=== PATIENT | female | born 1955 | race Caucasian/White ===

== ENCOUNTER 2017-06-14 11:29 | Outpatient (CLI) | payer OTHER ==
[2012-10-17 18:57] VITALS: BP 145/54
[2017-06-14 12:34] LABS: eGFR (African) > 60; eGFR (Non-African) > 60
== END 2017-06-14 11:30 ==
LOC: LAB 11:29
PROVIDERS: ATTEND Internal Medicine
DX: E11.65 Type 2 diabetes mellitus with hyperglycemia (principal); I10 Essential (primary) hypertension; E78.00 Pure hypercholesterolemia, unspecified; E03.9 Hypothyroidism, unspecified
CPT/HCPCS: 36415; 80053; 80061; 82043; 83036; 84439; 84443

== ENCOUNTER 2017-12-23 11:52 | Outpatient (CLI) | payer OTHER ==
[2012-10-17 18:57] VITALS: BP 145/54
[2017-12-23 16:31] LABS: TOTAL PROTEIN 6.4 g/dL (6.0-8.5)
== END 2017-12-23 11:53 ==
LOC: LAB 11:52
PROVIDERS: ATTEND Internal Medicine
DX: I10 Essential (primary) hypertension (principal); E78.00 Pure hypercholesterolemia, unspecified; E11.9 Type 2 diabetes mellitus without complications
CPT/HCPCS: 36415; 80053; 83036

== ENCOUNTER 2018-04-15 11:36 | Outpatient (CLI) | payer OTHER ==
[2012-10-17 18:57] VITALS: BP 145/54
[2018-04-15 12:45] LABS: eGFR (Non-African) > 60
== END 2018-04-15 11:38 ==
LOC: LAB 11:36
PROVIDERS: ATTEND Internal Medicine
DX: I10 Essential (primary) hypertension (principal); E78.00 Pure hypercholesterolemia, unspecified; E11.9 Type 2 diabetes mellitus without complications; E03.9 Hypothyroidism, unspecified
CPT/HCPCS: 36415; 80053; 80061; 82043; 83036; 84439; 84443

== ENCOUNTER 2018-07-17 12:11 | Outpatient (CLI) | payer OTHER ==
[2012-10-17 18:57] VITALS: BP 145/54
== END 2018-07-17 12:12 ==
LOC: LAB 12:11
PROVIDERS: ATTEND Internal Medicine
DX: E11.65 Type 2 diabetes mellitus with hyperglycemia (principal)
CPT/HCPCS: 36415; 83036